=== PATIENT | male | born 1945 | race African-American/Black ===

== ENCOUNTER 2020-01-01 16:42 | Inpatient (IN) | payer MEDICARE, MEDICAID ==
[~2020-01-01 16:42] MED LIST: Iopamidol-370 76% 500 ML 1 ML ONE
[2020-01-01 17:00] LABS: Hemoglobin 12.8 g/dL (14.0-18.0); Mean Corpuscular HGB CONC 33.5 g/dL (32.0-36.0); Mean Corpuscular Hemoglobin 36.6 pg (27.0-31.0); RBC Distribution Width 11.6 % (11.5-14.5); Red Blood Cell (RBC) Count 3.48 mill/uL (4.70-6.10); White Blood Cell (WBC) Count 15.5 thou/uL (4.8-10.8)
[2020-01-01 17:31] LABS: Band 17 % (5-11); Lymphocytes 12 % (21-51); MDiff Complete? YES; Macrocytosis SLIGHT = 6-15 cells (100X) (0-5/hpf); Mean Platelet Volume 9.8 fL (7.4-10.4); Monocytes 38 % (0-10); Neutrophil 33 % (42-75); Platelet Count 99 thou/uL (130-400); Platelet Morphology Comment Appears Decreased; Reflex for Review?? YES
[2020-01-01 17:33] LABS: ALT (SGPT) 43 U/L (8-55); AST (SGOT) 57 U/L (5-34); Albumin 4.3 g/dL (3.4-4.8); Alkaline Phosphatase 78 U/L (40-110); Anion Gap 18 mmol/L (10-20); BUN (Urea Nitrogen) 10 mg/dL (8.4-25.7); Bilirubin, Total 2.1 mg/dL (0.2-1.2); Calc. Creatinine Clearance 0 mL/min (70-130); Calcium 9.6 mg/dL (7.8-10.44); Carbon Dioxide 22 mmol/L (23-31); Chloride 98 mmol/L (98-107); Estimated GFR-MDRD 76; Globulin 5.2 g/dL (2.4-3.5); Glucose 119 mg/dL (83-110); Potassium 3.7 mmol/L (3.5-5.1); Protein, Total 9.5 g/dL (5.8-8.1); Sodium 134 mmol/L (136-145)
[2020-01-01] MEDS ORDERED: Cefepime 2 GM VIAL ONE (17:37)
--- NOTE | 2020-01-01 17:56 | ULT ---
ULTRASOUND SCROTUM AND TESTICLES DOPPLER DUPLEX: DATE: 01/01/2020 HISTORY: Left scrotal pain in 74-year-old male TECHNIQUE: Grayscale evaluation of intrascrotal contents. Color flow Doppler and spectral waveform analysis of t he testicles. FINDINGS: There are bilateral moderate-sized hydroceles that contain numerous septations. Some of the septation s are thick. Bilateral testicles are normal in size and homogeneous in echogenicity, with symmetrical blood flow d emonstrated. (Because of the symmetry of the blood flow, it is difficult to evaluate for orchitis, which would show increased flow to one testicle relative to the other) There is bilateral epididymal enlargement and increased blood flow. IMPRESSION: 1) bilateral epididymal enlargement and hyperemia: Evidence for bilateral epididymitis. 2) multi septated, multiloculated bilateral moderate-sized hydroceles: Possibility of bilateral scrot al pyoceles.
[2020-01-01] MEDS ORDERED: Vancomycin HCl 1.75 GM in Sodium Chloride 0.9% 500 ML IVPB SCH (18:15)
[2020-01-01 18:55] LABS: Bacteria/HPF None Seen HPF (None Seen); Bilirubin Negative (Negative); Blood, Urine 1+ (Negative); Clarity Turbid (Clear); Glucose, Urine (Dipstick) Normal (Negative); Leukocyte 250 Leu/uL (Negative); Nitrite Negative (Negative); Protein, Urine (Dipstick) 50 mg/dL (Neg-Trace); RBC/HPF 0-3 HPF (0-3); Squamous Epithelial 0-3 HPF (0-3); WBC/HPF 21-50 HPF (0-3)
[2020-01-01] MEDS ORDERED: Acetaminophen 500 MG TAB ONE (18:58)
--- NOTE | 2020-01-01 19:49 | PDOC.FPRHP ---
- History of Present Illness Chief Complaint: Left testicular pain History of Present Illness: This is a 74 yo male with no pmh or daily medications who presents to the ED with a cc of left testicular pain for the last 3 days. He states he was at home in his usual state of health when the pain started suddenly. It was an ache with radiation to his abdomen. He states the pain is constant and that he has never had anything like this before. He reports waiting it out for 3 days but today he came in because the pain was unchanged. He denies any penile discharge , dysuria, nausea, vomiting. He does report constipation with a BM every week or so but this does not appear to bother him. He denies any anal sex or sexual activity in general at this time. He denies family history of testicular problems. He reports associated fever and chills. He reports a recent neck surgery. He is not sure what they did but he states the replaced the front and the back. He states that since then he has been having some muscle spasms, worse at night. ED Course: NS 2L Vancomycin 20mg/kg Cefepime 2g Tylenol 1g - Allergies/Adverse Reactions Allergies Allergy/AdvReac Type Severity Reaction Status Date / Time No Known Allergies Allergy Verified 01/01/20 20:43 - Home Medications Medication Instructions Recorded Confirmed Type No Known 01/01/20 01/01/20 History - History PMHx: Denies any PMH PSHx: Recent neck surgery FHx: Denies familial HTN, CAD, or cancer Social: Denies drug or tobacco use. Reports occasional alcohol use but cannot remember the last time he had more than 6 drinks - Review of Systems General: reports: fever/chills, weight/appetite/sleep changes (decreased appetite in the last 3 days). denies: night sweats, fatigue Eyes: denies: eye pain, vision changes ENT: denies: nasal congestion, rhinorrhea Respiratory: denies: cough, congestion, shortness of breath, exercise intolerance, other (no recent travel) Cardiovascular: denies: chest pain, palpitation, edema, paroxysmal nocturnal dyspnea, orthopnea Gastrointestinal: reports: constipation, abdominal pain. denies: nausea, vomiting, diarrhea, GI bleeding Genitourinary: denies: incontinence, dysuria Skin: denies: rashes, lesions Musculoskeletal: denies: pain, tenderness Neurological: reports: other (muscle spasms). denies: numbness, syncope Psychological: denies: anxiety, depression - Vital signs BP: 133/86 HR: 95 RR: 18 Tmax: 102.9 Pox: 100% on ra Wt: 83kg - Physical Exam Constitutional: NAD, awake, alert and oriented HEENT: normocephalic and atraumatic, PERRLA, EOMI, MMM Neck: trachea midline, no JVD Chest: no-tender to palpation, no lesions Heart: RRR, normal S1/S2, no murmurs/rubs/gallops, pulses present Lungs: CTAB, no respiratory distress, good air movement, no wheezing, no retractions Abdomen: other (mild distension, no ttp, tempanic to percusion over all 4 quadrants, BS+) Musculoskeletal: normal structure, normal tone, ROM grossly normal Neurological: no focal deficit, CN II-XII intact Skin: no rash/lesions, good turgor Heme/Lymphatic: no unusual bruising or bleeding Psychiatric: normal mood and affect, good judgment and insight Additional comment: Pt has a swollen left testicle with firmness throughout the scrotum on the left. Mild ttp, right testicle has no masses, scrotum appears slightly enlarged with no induration. Penis appears normal FMR H&P: Results - Labs Result Diagrams: 01/02/20 05:04 01/02/20 05:04 Lab results: WBC 15.5 thou/uL (4.8-10.8) H 01/01/20 16:50 Hgb 12.8 g/dL (14.0-18.0) L 01/01/20 16:50 Hct 38.1 % (42.0-52.0) L 01/01/20 16:50 MCV 109.0 fL (78.0-98.0) H 01/01/20 16:50 Plt Count 99 thou/uL (130-400) L 01/01/20 16:50 Band Neuts % (Manual) 17 % (5-11) H 01/01/20 16:50 Sodium 134 mmol/L (136-145) L 01/01/20 16:50 Potassium 3.7 mmol/L (3.5-5.1) 01/01/20 16:50 Chloride 98 mmol/L (98-107) 01/01/20 16:50 Carbon Dioxide 22 mmol/L (23-31) L 01/01/20 16:50 BUN 10 mg/dL (8.4-25.7) 01/01/20 16:50 Creatinine 1.15 mg/dL (0.7-1.3) 01/01/20 16:50 Glucose 119 mg/dL (83-110) H 01/01/20 16:50 Lactic Acid 3.1 mmol/L (0.5-2.2) H 01/01/20 18:31 Calcium 9.6 mg/dL (7.8-10.44) 01/01/20 16:50 Total Bilirubin 2.1 mg/dL (0.2-1.2) H 01/01/20 16:50 AST 57 U/L (5-34) H 01/01/20 16:50 ALT 43 U/L (8-55) 01/01/20 16:50 Alkaline Phosphatase 78 U/L (40-110) 01/01/20 16:50 Serum Total Protein 9.5 g/dL (5.8-8.1) H 01/01/20 16:50 Albumin 4.3 g/dL (3.4-4.8) 01/01/20 16:50 Urine Ketones 40 mg/dL (Negative) A 01/01/20 18:13 Urine Blood 1+ (Negative) A 01/01/20 18:13 Urine Nitrite Negative (Negative) 01/01/20 18:13 Ur Leukocyte Esterase 250 Lazaro/uL (Negative) A 01/01/20 18:13 Urine RBC 0-3 HPF (0-3) 01/01/20 18:13 Urine WBC 21-50 HPF (0-3) A 01/01/20 18:13 Ur Squamous Epith Cells 0-3 HPF (0-3) 01/01/20 18:13 Urine Bacteria None Seen HPF (None Seen) 01/01/20 18:13 - Radiology Interpretation Other Status: report reviewed by me (Testicular US: 1) bilateral epididymal enlargement and hyperemia: Evidence for bilateral epididymitis. 2) multi septated, multiloculated bilateral moderate-sized hydroceles: Possibility of bilateral scrot al pyoceles.) FMR H&P: A/P - Problem List (1) Orchitis and epididymitis Current Visit: Yes Status: Acute Code(s): N45.3 - EPIDIDYMO-ORCHITIS - Plan This is a 74 yo male who denies any pmh or daily meds Sepsis 2/2 orchitis and epididymitis -Admit to medical -S/P 2L NS, Vancomycin 20mg/kg, Cefepime 2g -Testicular US concerning for orchitis and epididymitis, negative for torsion -Dr. Peterson consulted from ED, recommends abx at this time. He will see the pt -Change abx to Levaquin -CT abdomen/pelvis to rule out further infectious causes -Tylenol for fever Hyperbiliruminemia -Will trend, no RUQ tenderness Muscle spasms -PRN robaxin Thrombocytopenia -Will monitor, hold pharmaceutical anticoagulation at this time. Code: Full Prophylaxis: SCDs Family: none at bedside Fluids 1L NS 150ml/hr x1 L Diet: HH Disposition: DC in 2-3 days PCP: [facility] Addendum - Attending - Attending Attestation Date/Time: 01/02/20 3068 I personally evaluated the patient and discussed the management with Dr. Batista at time of admission. I agree with the History, Examination, Assessment and Plan documented above with any addition or exceptions noted below.
[2020-01-01] MEDS ORDERED: Ondansetron PF 4 MG/2 ML Vial IVP PRN ×2 (20:17→22:36)
[2020-01-01] MEDS ORDERED: Ondansetron ODT 4 MG TAB SL PRN (20:17)
[2020-01-01] MEDS ORDERED: Acetaminophen 325 MG TAB PO PRN (20:17)
[2020-01-01 20:18] VITALS: BMI 28.3
[2020-01-01] MEDS ORDERED: Morphine 4 MG/ML VIAL SLOW IVP PRN (20:20)
[2020-01-01] MEDS ORDERED: Morphine 2 MG/ML SYRINGE SLOW IVP PRN (20:20)
[2020-01-01 21:42] LABS: Lactic Acid 1.1 mmol/L (0.5-2.2)
[2020-01-01] MEDS ORDERED: Methocarbamol 500 MG TAB PO PRN (22:36)
[2020-01-01] MEDS ORDERED: Ondansetron ODT 4 MG TAB PO PRN (22:36)
[2020-01-01] MEDS: Sodium Chloride 0.9% 1,000 ML IV SCH (23:38)
[2020-01-02] MEDS: Sodium Chloride 0.9% 1,000 ML IV SCH (00:10)
[2020-01-02] MEDS: Acetaminophen 325 MG TAB PO PRN ×3 (04:54→20:04)
[2020-01-02 05:40] LABS: Band 23 % (5-11); Hemoglobin 10.1 g/dL (14.0-18.0); Lymphocytes 10 % (21-51); MDiff Complete? YES; Mean Corpuscular HGB CONC 34.7 g/dL (32.0-36.0); Mean Corpuscular Hemoglobin 37.3 pg (27.0-31.0); Mean Platelet Volume 9.4 fL (7.4-10.4); Monocytes 43 % (0-10); Neutrophil 24 % (42-75); Platelet Count 65 thou/uL (130-400); Platelet Morphology Comment Appears Decreased; RBC Distribution Width 11.3 % (11.5-14.5); White Blood Cell (WBC) Count 11.1 thou/uL (4.8-10.8)
[2020-01-02 06:04] LABS: ALT (SGPT) 42 U/L (8-55); AST (SGOT) 55 U/L (5-34); Albumin 3.2 g/dL (3.4-4.8); Alkaline Phosphatase 60 U/L (40-110); Anion Gap 10 mmol/L (10-20); BUN (Urea Nitrogen) 7 mg/dL (8.4-25.7); Bilirubin, Total 1.9 mg/dL (0.2-1.2); Calc. Creatinine Clearance 83 mL/min (70-130); Calcium 7.9 mg/dL (7.8-10.44); Carbon Dioxide 23 mmol/L (23-31); Chloride 102 mmol/L (98-107); Estimated GFR-MDRD Greater than 90; Globulin 3.8 g/dL (2.4-3.5); Glucose 106 mg/dL (83-110); Potassium 3.6 mmol/L (3.5-5.1); Sodium 131 mmol/L (136-145)
--- NOTE | 2020-01-02 06:46 | PDOC.FM ---
- Subjective Subjective: patient awake and alert this AM. Unable to sleep, not because of pain. Pain is improved, feels sore today. Febrile overnight to 100.7. Tylenol has helped. Pt denies IV drug use, any inciting event prior to painful episode of L scrotum which started ~4 days ago. - Objective MAR Reviewed: Yes Vital Signs & Weight: Vital Signs (12 hours) Temp Pulse Resp BP Pulse Ox 01/02/20 06:21 98.9 F 01/02/20 03:52 100.7 F H 89 18 127/76 95 01/02/20 00:00 99.9 F H 82 18 123/74 97 01/01/20 20:19 99.4 F 97 18 130/76 97 Weight Weight 84.731 kg I&O: 12/31/19 01/01/20 01/02/20 06:59 06:59 06:59 Intake Total 1750 Output Total 850 Balance 900 Result Diagrams: 01/02/20 05:04 01/02/20 05:04 Phys Exam - Physical Examination Constitutional: NAD Respiratory: no wheezing, clear to auscultation bilateral Cardiovascular: RRR, no significant murmur Gastrointestinal: soft, non-tender, no distention, positive bowel sounds : L scrotal swelling and hardening, TTP; normal R scrotum. Neurological: moves all 4 limbs Psychiatric: normal affect, A&O x 3 Dx/Plan (1) Orchitis and epididymitis Code(s): N45.3 - EPIDIDYMO-ORCHITIS Status: Acute - Plan Plan: This is a 74 yo male who denies any pmh or daily meds Sepsis 2/2 orchitis and epididymitis - Testicular US concerning for orchitis and epididymitis, negative for torsion - Dr. Peterson consulted from ED, recommends abx at this time. He will see the pt - Continue levaquin. Current dosage is 750mg; however, recommended dosing is 500 mg daily for 10 days. Will discuss w/ team and Dr. Peterson. - Due to pt age and sexual activity risk, will not cover for gonorrhea or chlamydia at this time. - CT abdomen/pelvis w/ renal cysts and no other abnormalities. Nonemergent f/u of renal cysts. - Tylenol for fever. Tramadol for pain. May add NSAIDs for pain if needed. Hyperbiliruminemia - Will trend, no RUQ tenderness - Hepatitis panel, HIV, RPR pending. Denies IV drug usage or high-risk sexual activity. Muscle spasms s/p unspecified neck surgery - neck surgery several months ago - PRN robaxin Thrombocytopenia Macrocytic anemia - peripheral smear pending - iron studies, b12, folate pending - denies hx of alcohol use/abuse. Code: Full Prophylaxis: SCDs Family: none at bedside Fluids 1L NS 150ml/hr x1 L, completed. Encourage oral intake. Diet: HH Disposition: DC in 2-3 days PCP: ANDREA Addendum - Attending - Attending Attestation Date/Time: 01/02/20 0312 I personally evaluated the patient and discussed the management with Dr. Maldonado. I agree with the History, Examination, Assessment and Plan documented above with any addition or exceptions noted below.
--- NOTE | 2020-01-02 07:40 | CT ---
PRELIMINARY REPORT/[facility]/EMERGENCY AFTER HOURS PROCEDURE: CT OF THE ABDOMEN AND PELVIS WITH IV CONTRAST CLINICAL HISTORY: Abdominal pain and distension. TECHNIQUE: Serial axial images obtained. Sagittal reconstructed images obtained. Coronal reconstructed images obtained. Exam is performed with 100 ml of Isovue-370 intravenous contrast. Per PQRS, CT exam is performed using one or more of the following dose reduction techniques: Automate d exposure control, adjustment of the mA and/or KV according to patient size, or use of iterative rec onstruction techniques. COMPARISON: None FINDINGS: A low-density lesion is seen in the left kidney measuring 3.0 cm in diameter, likely cystic structure vs mass lesion. Recommend non-emergent ultrasound follow-up. Oral contrast is seen in the stomach, small bowel, and colon to the level of the transverse colon. Multiple pelvic phleboliths are seen. Moderate disc space narrowing and osteophyte formation of the lumbar spine is seen at L5-S1. The rest of the solid organs, viscera and bones are unremarkable. IMPRESSION: 1. Negative for acute process in the abdomen or pelvis. 2. Left renal cyst measuring 3.0 cm in diameter. Recommend non-emergent ultrasound follow-up. 3. Moderate degenerative changes of L5-S1. ELECTRONICALLY SIGNED BY: Boni Wilson MD Jan 02, 2020 12:32:11 AM CDT This report is intended for review by the ordering physician only, in accordance of law. If you recei ve this report in error, please call [facility] at [phone]. FINAL REPORT CT ABDOMEN AND PELVIS WITH ORAL AND IV CONTRAST: I agree with the preliminary report given by Dr. Boni Wilson of [facility]. POS: BESSIE
[2020-01-02 08:10] LABS: Iron 93 ug/dL (65-175); Iron Binding Capacity, Total 145 mcg/dL (261-462)
[2020-01-02 08:29] LABS: Ferritin 1044.26 ng/mL (22-322); Syphilis Antibody Nonreactive (Nonreactive)
[2020-01-02 08:36] LABS: Vitamin B12 274 pg/mL (211-911)
[2020-01-02 08:44] LABS: HBSAB Concentration 0.24 mIU/mL; HBSAg Index 0.19 S/CO (0-0.99); HIV (1/2) Antibody/Antigen Non-Reactive (NonReactive); HIV 1/2 INDEX 0.16 S/CO (<1.00); Hep B Surf AB Non-Reactive (NonReactive); Hep B Surf Ag Non-Reactive S/CO (NonReactive); Hep C IgG Ab Non-Reactive (NonReactive); Hep C Index 0.18 S/CO (0-0.79)
[2020-01-02] MEDS ORDERED: Prevnar 13-Val Conj/PF 0.5 ML SYRINGE IM ONE (09:00)
[2020-01-02 09:54] LABS: Hep B Core Total Ab Reactive (NonReactive)
[2020-01-02 09:57] LABS: Hep B Core Total Index 8.17 S/CO (0-0.79)
--- NOTE | 2020-01-02 11:25 | CON ---
DATE OF CONSULTATION: HISTORY OF PRESENT ILLNESS: This is a 74-year-old male with a history of left-sided testicular pain, which started at the beginning of this week. It has worsened since then and becomes swollen and hard. He developed fevers at home yesterday and so was seen in the emergency room. He was worked up there with a CT abdomen and testicular ultrasound, which indicated epididymitis. White count was 15. He has no prior episodes of epididymitis, urinary tract infection, and urinary retention. No prior urologic surgery. He does tell me that he has been having weak stream with small volume voiding over the past several days. He feels that he is emptying normally. He denies urgency, frequency, or dysuria. No history of hematuria. No flank pain or nausea. In speaking with him this morning, he tells me that his pain has improved slightly. No subjective fevers overnight. PAST MEDICAL HISTORY: None. SURGICAL HISTORY: Neck surgery. FAMILY HISTORY: Reviewed, noncontributory. SOCIAL HISTORY: Nonsmoker. No substance abuse. HOME MEDICATIONS: None. ALLERGIES: NONE. REVIEW OF SYSTEMS: Ten-point review of systems performed, negative except as mentioned in my HPI. PHYSICAL EXAMINATION: VITAL SIGNS: T-max 100.7, otherwise vitals stable. Urine output, unclear. He has 850 listed as well as one void. Overall, this seems to be adequate. GENERAL: No acute distress, conversant. HEENT: Head, normocephalic and atraumatic. Eyes, extraocular movements intact. Sclerae nonicteric. LUNGS: Breathing nonlabored, symmetric chest expansion. HEART: Regular rate and rhythm. ABDOMEN: Soft, nontender, nondistended. : No flank tenderness. No suprapubic tenderness, bladder nondistended. Intact phallus, left testicle indurated, slightly swollen. No areas of fluctuance or crepitus, no overlying erythema, right testicle normal. EXTREMITIES: No peripheral edema, extremities without clubbing or cyanosis. SKIN: Warm and dry. NEUROLOGIC: Alert and oriented x3. PSYCHIATRIC: Normal mood and affect. LABORATORY DATA: White count 15 on admission, 11 this morning. Urinalysis on admission positive for leukocyte esterase, negative nitrites, negative blood, creatinine 0.96. Testicular ultrasound has been reviewed, both the images and the radiology report. Certainly has a swollen left epididymis. However, I do not agree with bilateral pyoceles. He certainly has a reactive hydrocele on the left. CT, reviewed both the images and the radiology report, and I agree with a small likely 3 cm cyst in the left kidney. His bladder is distended. However, this is not meaningful without information on his voiding status. ASSESSMENT AND PLAN: Epididymo-orchitis, left. Urinary tract infection. I have asked the nurse to obtain a bladder scan to rule out retention as an underlying cause for his infection and epididymitis. I agree with Levaquin 500 mg daily should be sufficient for this patient. Urine culture pending. If he continues to improve clinically overnight, he likely can discharge tomorrow with oral antibiotics for three weeks. Job ID: [id number]
--- NOTE | 2020-01-02 13:48 | RAD ---
EXAM: Two views chest PROVIDED CLINICAL HISTORY: No evidence for infection COMPARISON: None FINDINGS: Cardiac and mediastinal silhouette appears within normal limits. Lungs appear free of significant opa city. No pleural fluid or pneumothorax apparent. IMPRESSION: No evidence for an acute cardiopulmonary process.
[2020-01-02 14:46] LABS: HBCM Index 0.07 S/CO (0-0.79); Hepatitis B Core IgM Abs Non-Reactive (NonReactive)
[2020-01-02] MEDS: traMADol HCl 50 MG TAB PO PRN (20:03)
[2020-01-02] MEDS: Melatonin 3 MG TAB PO PRN (20:04)
[2020-01-03] MEDS ORDERED: Lidocaine 2% Viscous Solution 20 ML, Aluminum & Magnesium Hydroxide 30 ML, Donnatal Eli... SSW SCH (07:45)
--- NOTE | 2020-01-03 08:00 | PDOC.FM ---
- Subjective Subjective: Patient's appetite is touch and go. Per RN, not eating much, somewhat sipping at liquids. Complains of abd pain that occurs when laying down. Not worse w/ movement. Intermittent. No N/V. + flatus. No BM. Pain does not improve w/ passing of flatus. Denies bad taste in mouth, increase in belching, or worsened pain after eating. Says he is not able to really taste much currently. - Objective MAR Reviewed: Yes Vital Signs & Weight: Vital Signs (12 hours) Temp Pulse Resp BP Pulse Ox 01/03/20 07:06 98 01/03/20 04:48 99.3 F 77 16 102/67 98 01/02/20 23:58 98.3 F 78 16 101/66 100 01/02/20 20:00 97.2 F L 93 16 102/65 98 Weight Weight 84.731 kg I&O: 01/02/20 01/03/20 01/04/20 06:59 06:59 06:59 Intake Total 1750 1210 Output Total 850 633 Balance 900 577 Result Diagrams: 01/03/20 08:11 01/03/20 08:11 Phys Exam - Physical Examination Constitutional: NAD nonlabored breathing Gastrointestinal: soft, non-tender, positive bowel sounds tympanic around midepigastric region Psychiatric: normal affect, A&O x 3 Dx/Plan (1) Orchitis and epididymitis Code(s): N45.3 - EPIDIDYMO-ORCHITIS Status: Acute - Plan Plan: This is a 74 yo male who denies any pmh or daily meds Sepsis 2/2 orchitis and epididymitis - Dr. Peterson consulted from ED, recommends continued abx at this time. - Continue levaquin 500 mg daily for 10 days. completed 2 days, tonight is dose #3. - urine gonorrhea/chlamydia pending. - CT abdomen/pelvis w/ renal cysts and no other abnormalities. Nonemergent f/u of renal cysts. - Tylenol for fever. Tramadol for pain. May add NSAIDs for pain if needed. Monocytosis Thrombocytopenia Macrocytic anemia DDx: TB, syphilis, cancer, rickettsia, protozoal infection - CXR negative for cavitary lesions and acute abnormality. - Quantiferon gold pending. - RPR negative - peripheral smear showing macrocytic anemia w/ ddx b12/folate deficiency, myelodysplastic syndrome and left shift - b12, folate normal - iron normal, TIBC low. Ferritin high: likely acute phase reactant in setting of acute orchitis infection - denies hx of alcohol use/abuse. Hyperbiliruminemia Diffuse midepigastric abdominal pain Hepatitis A+, Hepatitis B core antibody + - no RUQ tenderness - HIV neg - no hx of IV drug use, high risk sexual activity. - hepatitis B labs thus far indicate patient may be in a window period where he may have had infection ~4-6 months ago and has not yet developed antibody. He is non-immune to Hep B at this point in time. - he is complaining of diffuse abdominal pain that comes and goes when laying down, will try GI cocktail to see if improves. If not, will reassess for other causes of pain. Muscle spasms s/p unspecified neck surgery - neck surgery several months ago - PRN robaxin Code: Full Prophylaxis: SCDs Family: none at bedside Fluids Encourage oral intake. Diet: HH Disposition: DC when fever free for 24 hours. PCP: ANDREA Addendum - Attending - Attending Attestation Date/Time: 01/03/20 2846 I personally evaluated the patient and discussed the management with Dr. Maldonado. I agree with the History, Examination, Assessment and Plan documented above with any addition or exceptions noted below. Patient feeling well. Continue Levaquin and monitor fever curve. Urology on board. Cultures still pending.
[2020-01-03 08:24] LABS: Hemoglobin 9.9 g/dL (14.0-18.0); Mean Corpuscular HGB CONC 34.3 g/dL (32.0-36.0); Mean Corpuscular Hemoglobin 37.2 pg (27.0-31.0); Mean Platelet Volume 9.3 fL (7.4-10.4); Platelet Count 72 thou/uL (130-400); RBC Distribution Width 11.3 % (11.5-14.5); Red Blood Cell (RBC) Count 2.66 mill/uL (4.70-6.10); White Blood Cell (WBC) Count 8.7 thou/uL (4.8-10.8)
[2020-01-03 08:47] LABS: ALT (SGPT) 35 U/L (8-55); AST (SGOT) 41 U/L (5-34); Albumin 3.3 g/dL (3.4-4.8); Alkaline Phosphatase 55 U/L (40-110); Anion Gap 12 mmol/L (10-20); BUN (Urea Nitrogen) 8 mg/dL (8.4-25.7); Bilirubin, Total 1.2 mg/dL (0.2-1.2); Calc. Creatinine Clearance 100 mL/min (70-130); Calcium 8.4 mg/dL (7.8-10.44); Carbon Dioxide 22 mmol/L (23-31); Chloride 102 mmol/L (98-107); Estimated GFR-MDRD Greater than 90; Globulin 3.8 g/dL (2.4-3.5); Glucose 101 mg/dL (83-110); Potassium 3.7 mmol/L (3.5-5.1); Protein, Total 7.1 g/dL (5.8-8.1); Sodium 132 mmol/L (136-145)
[2020-01-03 09:52] LABS: Band 28 % (5-11); Lymphocytes 13 % (21-51); MDiff Complete? YES; Macrocytosis MODERATE=16-30 cells (100X) (0-5/hpf); Metamyelocyte 1 % (0-0); Monocytes 35 % (0-10); Neutrophil 22 % (42-75); Platelet Morphology Comment Appears Decreased; Polychromasia SLIGHT = 2-3 cells (100X) (0-2/hpf); Reactive Lymphocytes 1 % (0-10)
--- NOTE | 2020-01-03 10:23 | PRG ---
DATE OF SERVICE: 01/03/2020 SUBJECTIVE: No acute events overnight. The patient reports that his testicular discomfort has improved from yesterday, rating it about 5/10 or 6/10 at this time. Still with minimal appetite. He does report subjective fever yesterday afternoon. He denies chest pain, nausea, or difficulty breathing. REVIEW OF SYSTEMS: 10-point review of systems is otherwise negative. OBJECTIVE: VITAL SIGNS: T-max 102.7 yesterday afternoon. Otherwise, afebrile since 3 o'clock on January 01. Vitals otherwise stable. Urine output has not been recorded. GENERAL: No acute distress, conversant. LUNGS: Unlabored breathing. Symmetric chest expansion. HEART: Regular rate and rhythm. ABDOMEN: Soft, nontender, and nondistended. No flank tenderness. No suprapubic tenderness. : Normal, intact phallus. Normal right testicle. Left testicle less swollen today, still indurated and tenderness has improved somewhat. No overlying erythema. SKIN: Warm and dry. EXTREMITIES: Without clubbing, cyanosis, or edema. NEUROLOGIC: Alert and oriented x3. PSYCHIATRIC: Normal mood and affect. LABORATORY DATA: White count is 8.7, down from 11.1 yesterday and 15.5 on admission. Creatinine 0.8. Urine culture, no growth to date. Postvoid residual yesterday was 83. Hospital day 3, left epididymitis. Continue IV antibiotics, the patient is improving both objectively and subjectively. At this point, surgical intervention is not indicated. We should know over the next 24 hours or so if he can discharge safely with oral antibiotic therapy for 2 to 3 weeks. Job ID: [id number]
[2020-01-03] MEDS: traMADol HCl 50 MG TAB PO PRN (15:30)
[2020-01-03] MEDS ORDERED: Lactated Ringer's 500 ML IV SCH (16:00)
--- NOTE | 2020-01-03 16:06 | PDOC.BPN ---
- Brief Progress Note Called by HERLINDA Schuler that pt was having abd pain. Went to evaluate pt. RN giving tramadol upon my arrival. S: Pt reports increased pain in his L groin, same as his pain on arrival. Says pain is not radiating to his abdomen. No N/V. Denies dysuria, hematuria. + flatus. No gas pain. Pain increased during his second walk today w/ walking program. Of note, his epigastric pain has not returned since GI cocktail this AM. O: VSS Fluid in urinal at bedside looked dark/tea colored. Abdomen: soft, nondistended, nontender, BS normoactive. A/P: Ordered 500mg LR bolus. Miralax 17g in AM scheduled. Colace BID prn. May continue tylenol and tramadol for pain.
[2020-01-03] MEDS ORDERED: Docusate 100 MG CAP PO PRN (16:07)
[2020-01-03] MEDS: Melatonin 3 MG TAB PO PRN (20:15)
[2020-01-03] MEDS ORDERED: Tamsulosin HCl 0.4 MG CAP PO SCH (21:00)
[2020-01-04 00:12] LABS: Chlam.trachomatis by PCR,Urine Not Detected (NotDetected)
[2020-01-04 06:15] LABS: Band 21 % (5-11); Hemoglobin 9.2 g/dL (14.0-18.0); Hypochromia SLIGHT = 6-15 cells (100X) (0-5/hpf); Lymphocytes 36 % (21-51); MDiff Complete? YES; Macrocytosis SLIGHT = 6-15 cells (100X) (0-5/hpf); Mean Corpuscular HGB CONC 33.2 g/dL (32.0-36.0); Mean Corpuscular Hemoglobin 36.2 pg (27.0-31.0); Mean Platelet Volume 9.8 fL (7.4-10.4); Metamyelocyte 7 % (0-0); Monocytes 16 % (0-10); Neutrophil 17 % (42-75); Platelet Count 73 thou/uL (130-400); Platelet Morphology Comment Appears Decreased; RBC Distribution Width 11.6 % (11.5-14.5); Reactive Lymphocytes 3 % (0-10); Red Blood Cell (RBC) Count 2.54 mill/uL (4.70-6.10); White Blood Cell (WBC) Count 6.1 thou/uL (4.8-10.8)
[2020-01-04 06:16] LABS: ALT (SGPT) 30 U/L (8-55); AST (SGOT) 39 U/L (5-34); Albumin 3.2 g/dL (3.4-4.8); Alkaline Phosphatase 56 U/L (40-110); Anion Gap 9 mmol/L (10-20); BUN (Urea Nitrogen) 8 mg/dL (8.4-25.7); Calc. Creatinine Clearance 100 mL/min (70-130); Calcium 8.5 mg/dL (7.8-10.44); Carbon Dioxide 27 mmol/L (23-31); Chloride 100 mmol/L (98-107); Estimated GFR-MDRD Greater than 90; Globulin 3.9 g/dL (2.4-3.5); Glucose 101 mg/dL (83-110); Potassium 3.6 mmol/L (3.5-5.1); Protein, Total 7.1 g/dL (5.8-8.1); Sodium 132 mmol/L (136-145)
--- NOTE | 2020-01-04 06:24 | PDOC.FM ---
- Subjective Subjective: Pt feeling well this AM. No pain currently. Enjoys the Edwin fruit punch drink. Tmax of 101.0 around 1600 yesterday. More history obtained about pt's past. Reports hepatitis in the 1990s but doesn' t remember what type. Homeless and had female sexual partner who also had hepatitis at the time. + Drug use, not IV route. Denies ever having a recent treatment for hepatitis. Denies recent travel, poor water quality, eating new food or eating at new places. As for FHx, denies HTN, DM and other disorders. Mother had breast cancer. No other cancer history in family. - Objective MAR Reviewed: Yes Vital Signs & Weight: Vital Signs (12 hours) Temp Pulse Resp BP Pulse Ox 01/03/20 20:00 95 01/03/20 19:19 98.6 F 80 20 124/78 95 Weight Weight 84.731 kg I&O: 01/02/20 01/03/20 01/04/20 06:59 06:59 06:59 Intake Total 1750 1210 1810 Output Total 850 633 650 Balance 445 459 6781 Result Diagrams: 01/04/20 05:29 01/04/20 05:29 Phys Exam - Physical Examination Constitutional: NAD Respiratory: clear to auscultation bilateral Cardiovascular: RRR, no significant murmur Gastrointestinal: soft, non-tender (mild distension), positive bowel sounds Psychiatric: normal affect, A&O x 3 Dx/Plan (1) Orchitis and epididymitis Code(s): N45.3 - EPIDIDYMO-ORCHITIS Status: Acute - Plan Plan: This is a 74 yo male who denies any pmh or daily meds Sepsis 2/2 orchitis and epididymitis - Dr. Peterson consulted from ED, recommends continued abx at this time. - Continue levaquin 500 mg daily for 10 days. completed 3 days, tonight is dose #4. - urine gonorrhea/chlamydia negative - Final urine culture negative - Blood cultures NGTD at 48 hours. - CT abdomen/pelvis w/ renal cysts and no other abnormalities. Nonemergent f/u of renal cysts. - Tylenol for fever. Tramadol for pain. May add NSAIDs for pain if needed. Monocytosis, Metamyelocytes Thrombocytopenia Macrocytic anemia, downtrending hgb DDx: TB, syphilis, cancer, rickettsia, protozoal infection - CXR negative for cavitary lesions and acute abnormality. - Quantiferon gold pending. - RPR negative - peripheral smear showing macrocytic anemia w/ ddx b12/folate deficiency, myelodysplastic syndrome and left shift - b12, folate normal - iron normal, TIBC low. Ferritin high: likely acute phase reactant in setting of acute orchitis infection - denies hx of alcohol use/abuse. Hyperbiliruminemia Diffuse midepigastric abdominal pain, resolved Hepatitis A+, Hepatitis B core antibody + - history of hepatitis in . Unsure what type. - HIV neg - GI cocktail resolved his midepigastric abdominal pain. Muscle spasms s/p unspecified neck surgery - neck surgery several months ago - PRN robaxin Code: Full Prophylaxis: SCDs Fluids Encourage oral intake. Diet: HH Disposition: DC when fever free for 24 hours and/or per Dr. Peterson recs. Addendum - Attending - Attending Attestation Date/Time: 01/04/20 7397 I personally evaluated the patient and discussed the management with Dr. Maldonado. I agree with the History, Examination, Assessment and Plan documented above with any addition or exceptions noted below. Patient feels well. Watching fever curve and awaiting final recs from Urology but possible d/c home later today.
[2020-01-04] MEDS ORDERED: Polyethylene Glycol 3350 17 GM Packet PO SCH (09:00)
--- NOTE | 2020-01-04 11:51 | PRG ---
DATE OF SERVICE: 01/04/2020 SUBJECTIVE: No acute events overnight. The patient denies any subjective fevers. He reports that his testicular pain has improved from yesterday. He denies dysuria, hematuria, flank pain, nausea, vomiting, fevers or chills. REVIEW OF SYSTEMS: 10-point review of systems otherwise negative. PHYSICAL EXAMINATION: VITAL SIGNS: T-max 101, otherwise vitals stable. Urine output not being recorded. GENERAL: No acute distress, conversant. LUNGS: Unlabored breathing, symmetric chest expansion. HEART: Regular rate and rhythm. ABDOMEN: Soft, nontender, nondistended. : No suprapubic tenderness, normal right testicle, normal intact phallus, left testicle less indurated and swollen than yesterday, tenderness also improving. No overt signs of infection, no palpable abscess. SKIN: Warm and dry. NEUROLOGIC: Alert and oriented x3. PSYCHIATRIC: Normal mood and affect. LABORATORY DATA: Reviewed. White count 6. Creatinine 0.8. ASSESSMENT AND PLAN: Hospital day 3 epididymitis. Responding well to IV antibiotics. Cultures are all no growth. At this point, from a urology standpoint, he can discharge home with 14 days of Levaquin. I will see him at the end of the 14 days to assess his progress. We did discuss precautions for when he should contact me or seek medical attention if he is failing to improve. Please call with any questions. Job ID: [id number]
[2020-01-04 16:16] VITALS: BP 118/66; TEMP 99.1
[2020-01-05 22:37] LABS: QuantiFERON-TB Gold Plus Negative (Negative)
--- NOTE | 2020-01-06 11:42 | DIS ---
DATE OF ADMISSION: 01/01/2020 DATE OF DISCHARGE: 01/04/2020 ADMITTING ATTENDING: Rocael Tabor MD DISCHARGE ATTENDING: Satnam Rodriguez MD RESIDENT: Brenda Maldonado MD CONSULTATIONS: Urology, Dr. Peterson. PROCEDURES: 1. CT of the abdomen and pelvis, which showed no acute process in the abdomen and pelvis. Left renal cyst measuring 3 cm in diameter. Recommend nonemergent ultrasound followup. Moderate degenerative changes of L5 and S1. 2. Testicular ultrasound of Doppler, impression, bilateral epididymal enlargement and hyperemia. Evidence for bilateral epididymitis. Multiseptated and multiloculated bilateral moderate size hydroceles. Possibility of bilateral scrotal pyoceles. 3. Chest x-ray, no evidence for acute cardiopulmonary process. PRIMARY DIAGNOSES: 1. Sepsis secondary to orchitis and epididymitis. 2. Hyperbilirubinemia. 3. Thrombocytopenia. 4. Macrocytic anemia with monocytosis and metamyelocytosis. SECONDARY DIAGNOSES: 1. Remote history of hepatitis infection. 2. Muscle spasm, status post neck surgery. DISCHARGE MEDICATIONS: 1. Tylenol 650 mg p.o. q.4 hours as needed. 2. Docusate 100 mg p.o. twice daily as needed for constipation. 3. Tamsulosin 0.4 mg p.o. at bedtime. 4. Levaquin 500 mg p.o. daily. 5. Tramadol 50 mg p.o. 4 times daily as needed for pain. DISCONTINUED MEDICATIONS: None. HISTORY OF PRESENT ILLNESS AND HOSPITAL COURSE: This is a 74-year-old male with no past medical history who presented to the emergency room with complaint of left testicular pain for the last 3 days. The patient stated that his pain started suddenly and radiated to his abdomen. Pain was constant; the patient had never experienced any pain like this before. The patient denied penile discharge, dysuria, nausea, or vomiting. The patient does have intermittent constipation, which does not bother him. The patient denied anal sex or high-risk sexual behavior recently. He denied history of personal cancer and stated his mother had breast cancer. He denied any past medical history; but the patient had a recent neck surgery and was having some muscle spasms in his neck. In the emergency room, the patient received 2 L of normal saline, vancomycin, cefepime, and Tylenol. The patient had a fever of 102.9 and was tachycardic. His laboratory values on presentation showed a white count of 15.5, a hemoglobin of 12.8, hematocrit 38.1, MCV of 109, platelet count of 99, neutrophils of 33%, bands of 17%, lymphocytes 12%, and monocytes of 38%. Peripheral blood smear was obtained showing macrocytic anemia. The patient had normal B12 and folate levels. We also obtained hepatitis serologies. Labs showed the patient to be positive for hepatitis A. A hepatitis B core total antibody was reactive, but a hepatitis B core IgM antibody was nonreactive suggesting a past infection. The patient was negative for hepatitis C, HIV-1 and HIV-2, syphilis, Chlamydia and gonorrhea, as well as nonreactive for hepatitis B surface antigen, hepatitis B surface antibody. We obtained a chest x-ray to rule out some form of tuberculosis, which could cause the monocytosis in this patient. It was negative for acute process. We also obtained a QuantiFERON Gold lab, which resulted as negative. The patient did have a urinalysis that showed turbid urine with a normal specific gravity, 50 of protein, 40 ketone, 1+ blood, 4.0 urobilinogen, 250 leukocyte esterase, and 21 to 50 white blood cells per high- power field. Procalcitonin was 0.09. The patient's initial liver enzymes showed a total bilirubin of 2.1. AST of 57, ALT of 43, and alkaline phosphatase of 78. His liver enzymes stayed relatively stable throughout admission. His iron was normal at 93, TIBC was low at 1.5, and ferritin was high at 1044, suspected to be high as an acute phase reactant. The patient slowly improved and his fever curve came down over the next couple of days. Urology saw him and indicated no surgical intervention. We placed him on Levaquin intravenously. On the day of discharge, Urology indicated that the patient could have 14 days of oral Levaquin and follow up with him as an outpatient. DISPOSITION: Stable. DISCHARGE INSTRUCTIONS: 1. Location: Home. 2. Activity: As tolerated. 3. Diet: Heart healthy. 4. Followup: The patient is to establish with primary care provider and follow up with them within 7 days for repeat CMP and CBC. His monocytosis should be further investigated for an occult myelodysplastic disease. This was especially important given that the patient did have 7% of metamyelocytes on his last CBC, which is abnormal. Job ID: [id number] MTDD
== END 2020-01-04 16:30 | disposition home or self-care (01) | DRG 872 ==
LOC: ERS 16:42 → T4-B 18:55
PROVIDERS: ADMIT Family Medicine; ATTEND Family Medicine
PROC: 3E0234Z Introduction of Serum, Toxoid and Vaccine into Muscle, Percutaneous Approach (ICD-10-PCS; principal; 2020-01-02)
DX: A41.9 Sepsis, unspecified organism (principal); N39.0 Urinary tract infection, site not specified; B15.9 Hepatitis A without hepatic coma; B19.10 Unspecified viral hepatitis B without hepatic coma; N45.3 Epididymo-orchitis; E80.6 Other disorders of bilirubin metabolism; M62.838 Other muscle spasm; D69.6 Thrombocytopenia, unspecified; D53.9 Nutritional anemia, unspecified; Z23 Encounter for immunization
CPT/HCPCS: 36415; 36416; 51701; 71046; 74177; 76870; 80053; 81003; 81015; 82607; 82728; 82746; 83540; 83550; 83605; 84145; 85025; 85060; 86480; 86704; 86705; 86706; 86707; 86708; 86780; 86803; 87040; 87086; 87340; 87389; 87491; 87591; 93976; 96365; 96367; J0692; J1956; J3370; J7050; Q9967